=== PATIENT | male | born 1960 | race African-American/Black ===

== ENCOUNTER 2017-12-11 15:04 | Inpatient (IN) ==
[2017-12-11] MEDS ORDERED: Acetaminophen 325 MG Tablet PO ONE (16:22)
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
--- NOTE | 2017-12-11 16:51 | XR ---
EXAM DATE: 12/11/2017 4:47 PM EDT AGE/SEX: 57 years / Male INDICATIONS: Swelling. CLINICAL DATA: This is the patient's initial encounter. Patient reports that signs and symptoms have been present for 2 months and indicates a pain score of 1/10. MEDICAL/SURGICAL HISTORY: None. Appendectomy. COMPARISON: No prior exams available for comparison. FINDINGS: There is fracture dislocation at the tibiotalar joint with fracture of the medial malleolus. There is oblique fracture of the distal fibula extending above the tibial plafond. There is medial dislocatio n by one half talar bone width. Comparison calcaneus are intact. CONCLUSION: Bimalleolar tibiotalar fracture dislocation. Electronically signed by: Buck Damon MD 12/11/2017 4:50 PM EDT
[2017-12-11] MEDS ORDERED: Morphine Inj 4 MG/ML Vial IV.PUSH ONE (17:55)
[2017-12-11 19:34] LABS: Baso % (Auto) 0.5 % (0.0-2.0); Eos # (Auto) 0.1 th/mm3 (0.0-0.4); Eos % (Auto) 1.6 % (0.0-4.0); Hematocrit 37.4 % (39.0-51.0); Hemoglobin 12.1 gm/dL (13.0-17.0); Lymph # (Auto) 1.4 th/mm3 (1.0-4.8); Mean Corpuscular HGB Conc 32.3 % (32.0-36.0); Mean Corpuscular Hemoglobin 26.6 pg (27.0-34.0); Mean Corpuscular Volume 82.2 fL (80.0-100.0); Mean Platelet Volume 7.9 fL (7.0-11.0); Mono # (Auto) 0.5 th/mm3 (0.0-0.9); Mono % (Auto) 8.1 % (0.0-8.0); Neut # (Auto) 3.9 th/mm3 (1.8-7.7); Neut % (Auto) 65.8 % (16.0-70.0); Platelet Count 282 th/mm3 (150-450); Red Blood Count 4.56 mil/mm3 (4.50-5.90); Red Cell Distribution Width 15.4 % (11.6-17.2); White Blood Count 5.9 th/mm3 (4.0-11.0)
[2017-12-11 19:50] LABS: Activated Partial Thrombo Time 28.8 sec (24.3-30.1); Prothrombin Time 10.6 sec (9.8-11.6)
[2017-12-11 19:54] LABS: Albumin 3.2 g/dL (3.4-5.0); Anion Gap 8 meq/L (5-15); Aspartate Aminotransferase 24 U/L (15-37); Blood Urea Nitrogen 13 mg/dL (7-18); Calcium 8.9 mg/dL (8.5-10.1); Chloride 103 meq/L (98-107); Glomerular Filtration Rate Greater Than 89 mL/min (>89); Glucose,Random 86 mg/dL (74-106); Potassium 4.1 meq/L (3.5-5.1); Sodium 137 meq/L (136-145)
[2017-12-11 19:55] LABS: Alanine Aminotransferase 24 U/L (12-78)
[2017-12-11 19:57] LABS: Alkaline Phosphatase 61 U/L (45-117); Total Protein 7.6 g/dL (6.4-8.2)
[2017-12-11] MEDS ORDERED: Morphine Inj 4 MG/ML Vial IV.PUSH PRN (21:49)
[2017-12-11] MEDS ORDERED: Temazepam 15 MG Capsule PO PRN (21:51)
[2017-12-11] MEDS ORDERED: Acetaminophen 325 MG Tablet PO PRN (21:51)
[2017-12-11] MEDS ORDERED: Bisacodyl 10 MG Supp RECTAL PRN (21:51)
[2017-12-11] MEDS: Sod Chloride 0.9% Inj 1,000 ML IV.CONT SCH (22:12)
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
[2017-12-12] MEDS ORDERED: Chlorhexidine Gluconate 2% 1 Pack (2 Cloths) TOPICAL SCH (00:15)
[2017-12-12] MEDS ORDERED: Zolpidem Tartrate 5 MG Tablet PO PRN (00:31)
[2017-12-12] MEDS ORDERED: Sodium Chlor 0.9% Inj 500 ML IV.SIG SCH (01:00)
[2017-12-12 06:53] LABS: Baso % (Auto) 0.5 % (0.0-2.0); Eos # (Auto) 0.1 th/mm3 (0.0-0.4); Eos % (Auto) 1.9 % (0.0-4.0); Hematocrit 36.4 % (39.0-51.0); Hemoglobin 11.8 gm/dL (13.0-17.0); Lymph # (Auto) 1.2 th/mm3 (1.0-4.8); Lymph % (Auto) 27.6 % (9.0-44.0); Mean Corpuscular HGB Conc 32.5 % (32.0-36.0); Mean Corpuscular Hemoglobin 26.6 pg (27.0-34.0); Mean Corpuscular Volume 81.9 fL (80.0-100.0); Mean Platelet Volume 8.3 fL (7.0-11.0); Mono # (Auto) 0.4 th/mm3 (0.0-0.9); Mono % (Auto) 10.1 % (0.0-8.0); Neut # (Auto) 2.7 th/mm3 (1.8-7.7); Neut % (Auto) 59.9 % (16.0-70.0); Platelet Count 277 th/mm3 (150-450); Red Blood Count 4.44 mil/mm3 (4.50-5.90); Red Cell Distribution Width 15.6 % (11.6-17.2); White Blood Count 4.4 th/mm3 (4.0-11.0)
[2017-12-12 07:04] LABS: Anion Gap 7 meq/L (5-15); Blood Urea Nitrogen 13 mg/dL (7-18); Calcium 8.9 mg/dL (8.5-10.1); Carbon Dioxide 24.9 meq/L (21.0-32.0); Chloride 106 meq/L (98-107); Glomerular Filtration Rate Greater Than 89 mL/min (>89); Glucose,Random 84 mg/dL (74-106); Potassium 4.1 meq/L (3.5-5.1); Sodium 138 meq/L (136-145)
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
[2017-12-12] MEDS ORDERED: Sodium Chlor 0.9% Inj 250 ML ONE (07:47)
--- NOTE | 2017-12-12 08:21 | MB ---
cc: Andrae Dey MD DATE: 12/12/2017 THIS IS A DUPLICATE DICTATION, PLEASE DELETE. Andrae Harrell. MD Yissel KERN/DL , 08:14 AM , 08:20 AM
[2017-12-12] MEDS: Haloperidol 5 MG Tablet PO SCH ×2 (08:27→22:50)
[2017-12-12] MEDS: Sod Chloride 0.9% Inj 1,000 ML IV.CONT SCH (08:27)
[2017-12-12] MEDS: Senna/Docusate Sodium 8.6/50 MG Tablet PO SCH ×2 (08:28→22:50)
[2017-12-12] MEDS ORDERED: Dexmedetomidine Inj 200 MCG/2 ML Vial ONE (09:03)
[2017-12-12] MEDS ORDERED: Promethazine 25 MG Supp RECTAL PRN (09:13)
[2017-12-12] MEDS ORDERED: Post-op Orders (for Pharmacy) OTHER STA (09:13)
--- NOTE | 2017-12-12 09:23 | P.OP ---
- Preoperative Diagnosis (1) Trimalleolar fracture of left ankle Date of procedure: 12/12/17 Procedure: Open reduction internal fixation left ankle trimalleolar fracture, open reduction to fixation left ankle syndesmosis Anesthesia: GETA Surgeon: Andrae Pavon MD Security Guard Dispatcher: JORDY Vides PA-C The surgical procedure was assisted by my physician traffic assistant. My P.A. presence was necessary throughout this case for the manipulation and positioning of the surgical extremity. My P.A. was assisting me throughout the duration of this procedure. The skill set of a physician traffic assistant was medically necessary to complete this procedure. During the surgical case the underwriting technician was working at the back table and the physician traffic assistant was directly assisting me. Operation and Findings: Implants used: ITS Plan of activity: Nonweightbearing Details of procedure: Patient was seen and evaluated preoperatively and found to have a displaced left ankle trimalleolar fracture. Informed consent was unobtainable from patient secondary to schizophrenia and altered mental status. Patient was noted to have significant displacement of fracture with tenting of the skin. This procedure was deemed medically necessary as well as medically urgent secondary to the tenting of the skin. This case was discussed with Dr. Fly Oliveros who had initially evaluated patient. Agreement was made to proceed with surgery with 2 physicians signing consent. The operative site was marked. Patient was brought to the OR, placed on the OR table, and given IV sedation and general endotracheal anesthesia. IV antibiotics were given preoperatively. A timeout procedure was performed. The left leg was prepped with alcohol followed by Hibiclens and draped in the usual sterile fashion. Attention was turned towards the distal fibula. A four-inch incision was made over the distal fibula. The subcutaneous tissue was dissected with Bovie. The fracture site was visualized. The fracture site was cleaned with curets. The fracture was now reduced. The fracture keyed into anatomic alignment. Fracture tenaculums and K-wires were used to hold provisional fixation. A plate was selected. The plate was provisionally held to bone with K-wires. 3.5 cortical screws were used to compress the plate to bone. Multiple screws were placed above and below the fracture. Next attention was turned towards the medial malleolus. The medial malleolus supposed through a 3 cm incision. Saphenous vein was retracted. Fracture was visualized. Fracture was cleaned with curettes. Fracture was now reduced and keyed into anatomic alignment. K wires were used to hold provisional fixation. 2 guidepins for the 4.0 cannulated screws were placed in a retrograde fashion across the fracture. Fluoroscopy was used to confirm guidepin placement. Cannulated drill was placed over the guidepin. 2 appropriate length screws were now placed. Good compression was applied. Fluoroscopy confirmed well aligned fracture with well-placed hardware. Next, attention was turned to the syndesmosis. The syndesmosis was stressed. There was widening of the syndesmosis with external rotation of the ankle. The syndesmosis was now held in a reduced position with the ankle in neutral position. Two cortical screws were now placed through the fibula plate into the tibia. Fluoroscopy confirmed appropriate screw placement with well-aligned syndesmosis. Incisions were thoroughly irrigated. The subcutaneous tissue was closed with 3-0 Vicryl and the skin was closed with 3-0 nylon. Sterile dressings were applied. A well molded well-padded splint was applied. The patient was transferred to Recovery in stable condition. Needle and sponge counts were correct.
[2017-12-12] MEDS ORDERED: fentaNYL Citrate Inj 100 MCG/2 ML Ampul ONE (09:48)
--- NOTE | 2017-12-12 10:06 | XR ---
EXAM DATE: 12/12/2017 9:40 AM EDT AGE/SEX: 57 years / Male INDICATIONS: Post-op ORIF left ankle fracture. CLINICAL DATA: This is the patient's subsequent encounter. Patient reports that signs and symptoms h ave been present for 2 days and indicates a pain score of Nonresponsive. MEDICAL/SURGICAL HISTORY: Non-responsive. Non-responsive. COMPARISON: No prior exams available for comparison. FINDINGS: 3 images from the OR have been submitted. There is a plate along the distal lateral aspect of the fib melissa secured by several screws. 2 screws are seen through the medial malleolus and extending to the di stal tibia. 2 screws extend from the lateral fibular plate through the fibula and into the distal tib ia. The ankle is normally aligned. CONCLUSION: Successful ORIF. Electronically signed by: Ole De Anda MD 12/12/2017 10:05 AM EDT
[2017-12-12] MEDS ORDERED: Phenylephrine/NS 1000 MCG/10ML Syringe IV.PUSH ONE (12:00)
[2017-12-12] MEDS ORDERED: Lidocaine PF 1% Inj 5 ML Syringe INFILTRATN ONE (12:00)
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
[2017-12-12] MEDS: ceFAZolin 2 GM Premix Inj 2 GM/50 ML PIGGYBACK IV.SIG SCH (22:48)
[2017-12-13] MEDS: Sod Chloride 0.9% Inj 1,000 ML IV.CONT SCH ×3 (00:15→15:05)
--- NOTE | 2017-12-13 06:50 | P.PNOP ---
Subjective Interval history: Resting comfortably with no new complaints Physical Exam Vital signs: Vital Signs 12/12/17 08:00 12/12/17 09:41 12/12/17 09:45 Temperature 97.8 F 96.3 F L 96.3 F L Pulse Rate 87 93 H 91 H Respiratory Rate 18 15 12 Blood Pressure 120/79 117/79 106/79 Pulse Oximetry 100 100 100 12/12/17 10:00 12/12/17 10:15 12/12/17 10:30 Temperature 98.1 F Pulse Rate 94 H 88 89 Respiratory Rate 13 20 14 Blood Pressure 119/60 126/67 125/70 Pulse Oximetry 100 100 99 12/12/17 12:00 12/12/17 20:00 12/13/17 00:00 Temperature 96.1 F L 97.8 F 98.1 F Pulse Rate 93 H 119 H 118 H Respiratory Rate 18 18 20 Blood Pressure 112/75 116/72 112/72 Pulse Oximetry 100 98 95 Intake & Output 12/12/17 12/12/17 12/13/17 06:59 18:59 06:59 Intake Total 2500 / 2500 Output Total 150 / 150 Balance 2350 / 2350 Intake: Anesthesia Amount 2500 / 2500 Output: Estimated Blood Loss 150 / 150 Other: # Voids 4 Date of Last Bowel Movement 12/10/17 12/12/17 Narrative: LLE: +short leg splint. intact. NVI Results - Labs CBC & Chem 7: 12/12/17 06:06 12/12/17 06:06 Laboratory Results - last 24 hr 12/12/17 12/12/17 06:06 06:06 WBC 4.4 RBC 4.44 L Hgb 11.8 L Hct 36.4 L MCV 81.9 MCH 26.6 L MCHC 32.5 RDW 15.6 Plt Count 277 MPV 8.3 Neut % (Auto) 59.9 Lymph % (Auto) 27.6 [place] % (Auto) 10.1 H Eos % (Auto) 1.9 Baso % (Auto) 0.5 Neut # (Auto) 2.7 Lymph # (Auto) 1.2 [place] # (Auto) 0.4 Eos # (Auto) 0.1 Baso # (Auto) 0.0 WBC Differential . Differential Comment Auto diff final Sodium 138 Potassium 4.1 Chloride 106 Carbon Dioxide 24.9 Anion Gap 7 BUN 13 Creatinine 0.76 Estimated GFR Greater than 89 Random Glucose 84 Calcium 8.9 - Imaging Impressions Ankle X-Ray 12/12/17 00:00 CONCLUSION: Successful ORIF. Assessment and Plan - Assessment and Plan Left trimalleolar ankle fracture status post open reduction internal fixation POD 1 Maintain splint Nonweightbearing left lower extremity Elevate to decrease swelling Case management for discharge plan. Unfortunately patient does not have a home
--- NOTE | 2017-12-13 07:09 | P.PNOP ---
Subjective Interval history: POD 1 s/p ORIF left ankle doign well. states pain but controlled Physical Exam Vital signs: Vital Signs 12/12/17 08:00 12/12/17 09:41 12/12/17 09:45 Temperature 97.8 F 96.3 F L 96.3 F L Pulse Rate 87 93 H 91 H Respiratory Rate 18 15 12 Blood Pressure 120/79 117/79 106/79 Pulse Oximetry 100 100 100 12/12/17 10:00 12/12/17 10:15 12/12/17 10:30 Temperature 98.1 F Pulse Rate 94 H 88 89 Respiratory Rate 13 20 14 Blood Pressure 119/60 126/67 125/70 Pulse Oximetry 100 100 99 12/12/17 12:00 12/12/17 20:00 12/13/17 00:00 Temperature 96.1 F L 97.8 F 98.1 F Pulse Rate 93 H 119 H 118 H Respiratory Rate 18 18 20 Blood Pressure 112/75 116/72 112/72 Pulse Oximetry 100 98 95 Intake & Output 12/12/17 12/13/17 12/13/17 18:59 06:59 18:59 Intake Total 2500 / 2500 900 / 900 Output Total 150 / 150 Balance 2350 / 2350 900 / 900 Weight 63.5 kg Intake: Oral 900 / 900 Anesthesia Amount 2500 / 2500 Output: Estimated Blood Loss 150 / 150 Other: # Voids 4 2 Date of Last Bowel Movement 12/12/17 # Bowel Movements 2 Narrative: LLE: +short leg splint. intact. nvi Results - Labs CBC & Chem 7: 12/12/17 06:06 12/12/17 06:06 - Imaging Impressions Ankle X-Ray 12/12/17 00:00 CONCLUSION: Successful ORIF. Assessment and Plan - Assessment and Plan 1) Left [place] Ankle fx s/p ORIF - POD 1 -NWB -splint at all times -CM for DC planning -ortho cleared for DC when arrangements made -scripts on chart -f/u with Yissel or BRINDA in 2 weeks
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
[2017-12-13] MEDS: ceFAZolin 2 GM Premix Inj 2 GM/50 ML PIGGYBACK IV.SIG SCH ×2 (10:23)
[2017-12-13] MEDS: Senna/Docusate Sodium 8.6/50 MG Tablet PO SCH ×2 (10:24→23:21)
[2017-12-13] MEDS: Haloperidol 5 MG Tablet PO SCH ×2 (10:25→23:21)
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
--- NOTE | 2017-12-13 18:11 | ECG ---
Date Performed: 12/12/2017 Time Performed: 04:44:48 PTAGE: 57 years EKG: Sinus rhythm Normal ECG NO PREVIOUS TRACING DOCTOR: Aden Villalpando Interpretating Date/Time 12/13/2017 18:10:43
[2017-12-14] MEDS: Sod Chloride 0.9% Inj 1,000 ML IV.CONT SCH ×2 (05:06→11:02)
--- NOTE | 2017-12-14 08:26 | P.PNOP ---
Subjective Interval history: pain controlled. Physical Exam Vital signs: Vital Signs 12/13/17 12:00 12/13/17 16:00 12/13/17 20:00 Temperature 98.7 F 98.6 F 98.9 F Pulse Rate 99 H 112 H 110 H Respiratory Rate 16 17 18 Blood Pressure 116/56 L 103/64 87/51 L Pulse Oximetry 99 99 97 12/13/17 22:00 12/14/17 04:00 Temperature 98.5 F 98.1 F Pulse Rate 101 H 106 H Respiratory Rate 18 18 Blood Pressure 108/56 L 112/55 L Pulse Oximetry 96 98 Intake & Output 12/13/17 12/14/17 12/14/17 18:59 06:59 18:59 Intake Total 1200 / 1200 Output Total 1100 / 1100 Balance 100 / 100 Intake: Oral 1200 / 1200 Output: Urine 1100 / 1100 Other: Date of Last Bowel Movement 12/13/17 12/13/17 Narrative: in bed, nad splint intact nvi cap refill Results - Labs CBC & Chem 7: 12/12/17 06:06 12/12/17 06:06 Laboratory Results - last 24 hr 12/11/17 19:08 Rout Panel Path Interp Assessment and Plan - Ortho Post Op Day # 2 - Assessment and Plan 1) Left [place] Ankle fx s/p ORIF - POD 2 -NWB -splint at all times -CM for DC planning -ortho cleared for DC when arrangements made -scripts on chart -f/u with Yissel or BRINDA in 2 weeks
[2017-12-14] MEDS: Senna/Docusate Sodium 8.6/50 MG Tablet PO SCH ×2 (09:28→20:50)
[2017-12-14] MEDS: Haloperidol 5 MG Tablet PO SCH ×2 (09:32→20:49)
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
[2017-12-15] MEDS: Sod Chloride 0.9% Inj 1,000 ML IV.CONT SCH ×2 (00:13→09:27)
[2017-12-15] MEDS: Haloperidol 5 MG Tablet PO SCH ×2 (09:24→20:46)
[2017-12-15] MEDS: Senna/Docusate Sodium 8.6/50 MG Tablet PO SCH ×2 (09:27→20:46)
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
[2017-12-16] MEDS: Sod Chloride 0.9% Inj 1,000 ML IV.CONT SCH ×3 (00:02→12:05)
--- NOTE | 2017-12-16 06:35 | P.PNOP ---
Subjective Interval history: s/p ORIF left ankle doing well. no new complaints Physical Exam Vital signs: Vital Signs 12/15/17 07:00 12/15/17 08:00 12/15/17 09:23 Temperature 98.3 F Pulse Rate 104 H Respiratory Rate 18 17 18 Blood Pressure 99/53 L Pulse Oximetry 98 12/15/17 12:00 12/15/17 16:00 12/15/17 20:00 Temperature 98.7 F 98.5 F 98.9 F Pulse Rate 102 H 97 H 108 H Respiratory Rate 18 18 18 Blood Pressure 110/63 108/70 110/70 Pulse Oximetry 95 100 99 12/16/17 00:00 12/16/17 05:57 Temperature 98.6 F Pulse Rate 99 H Respiratory Rate 18 18 Blood Pressure 105/62 Pulse Oximetry 98 Intake & Output 12/15/17 12/15/17 12/16/17 06:59 18:59 06:59 Intake Total 1300 / 1300 Output Total 875 / 875 Balance 1300 / 1300 -875 / -875 Weight 63.5 kg 63.5 kg Intake: Oral 1300 / 1300 Output: Urine 875 / 875 Other: # Voids 3 6 Date of Last Bowel Movement 12/14/17 12/15/17 12/15/17 # Bowel Movements 1 Narrative: LLE: +short leg splint. intact. NVI Results - Labs CBC & Chem 7: 12/12/17 06:06 12/12/17 06:06 Assessment and Plan - Assessment and Plan 1) Left [place] Ankle fx s/p ORIF - POD 4 -NWB -splint at all times -CM for DC planning -ortho cleared for DC when arrangements made -scripts on chart -f/u with Yissel or BRINDA in 2 weeks
[2017-12-16] MEDS: Senna/Docusate Sodium 8.6/50 MG Tablet PO SCH ×2 (09:22→21:38)
[2017-12-16] MEDS: Haloperidol 5 MG Tablet PO SCH ×2 (09:22→21:38)
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
[2017-12-17] MEDS: Sod Chloride 0.9% Inj 1,000 ML IV.CONT SCH ×2 (00:07→09:23)
[2017-12-17 04:26] VITALS: TEMP 98
[2017-12-17] MEDS: Haloperidol 5 MG Tablet PO SCH (09:23)
[2017-12-17] MEDS: Senna/Docusate Sodium 8.6/50 MG Tablet PO SCH (09:23)
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
[2017-12-17 15:39] VITALS: RESP 16; O2SAT 96
[2017-12-17 15:40] VITALS: BP 134/62; PULSE 90
== END 2017-12-17 14:05 ==
LOC: NEPK 15:04 → NEDA 20:22 → N06 22:47
PROVIDERS: ADMIT Hospitalist; ATTEND Hospitalist
PROC: ORIFANK (2017-12-12 08:11)
PROC: ORIFTIB (2017-12-12 08:11)